=== PATIENT | male | born 1970 | race Caucasian/White ===

== ENCOUNTER 2018-10-28 13:08 | Outpatient (CLI) | payer MEDICAID, SELFPAY ==
--- NOTE | 2018-10-28 15:56 | DI.RAD_ITS ---
SYMPTOM/DIAGNOSIS: RT KNEE PAIN, M25.561 RIGHT KNEE: Four views. No priors. Small osteophytes are seen at the posterior patella. The joint spaces are otherwise well maintained. The bones are intact and normally mineralized. The soft tissues are unremarkable. Small enthesophytes are seen at the anterior patella. IMPRESSION: Minimal degenerative changes of the right knee.
== END 2018-10-28 13:28 ==
PROVIDERS: PCP Physician Assistant Medical; Visit Provider Physician Assistant Medical
DX: M25.561 Pain in right knee (principal); M17.11 Unilateral primary osteoarthritis, right knee
CPT/HCPCS: 73562

== ENCOUNTER 2019-06-08 18:53 | Outpatient (REF) | payer MEDICAID, SELFPAY ==
[2019-06-08 23:02] LABS: ALT 125 U/L (16-63); AST 67 U/L (15-37); Albumin 3.6 g/dL (3.4-5.0); Alkaline Phosphatase 100 U/L (46-116); Anion Gap 6.6 mmol/L (3-11); BUN 16 mg/dL (7-18); Bilirubin, Total 0.4 mg/dL (0.2-1.0); CO2 28.4 mmol/L (21.0-32.0); CREATININE 1.04 mg/dL (0.70-1.30); Calcium 9.2 mg/dL (8.5-10.1); Calculated LDL 96 mg/dL; Chloride 99 mmol/L (98-107); Cholesterol 199 mg/dL (<200); Glucose 443 mg/dL (74-106); HDL Cholesterol 32 mg/dL (40-60); Potassium 5.2 mmol/L (3.5-5.1); Sodium 134 mmol/L (136-145); Total Protein 6.9 g/dL (6.4-8.2); Triglyceride 356 mg/dL (<150)
== END 2019-06-08 19:13 ==
LOC: NCHCN 18:53
PROVIDERS: PCP Physician Assistant Medical; Visit Provider Physician Assistant Medical
DX: E11.9 Type 2 diabetes mellitus without complications (principal)
CPT/HCPCS: 80053; 80061

== ENCOUNTER 2020-07-26 16:31 | Outpatient (REF) | payer MEDICAID, SELFPAY ==
[2020-07-26 19:03] LABS: Hemoglobin A1C 9.3 % (<5.7)
[2020-07-26 19:07] LABS: ALT 100 U/L (16-63); AST 29 U/L (15-37); Albumin 3.6 g/dL (3.4-5.0); Alkaline Phosphatase 111 U/L (46-116); BUN 23 mg/dL (7-18); Bilirubin, Total 0.4 mg/dL (0.2-1.0); CREATININE 1.1 mg/dL (0.70-1.30); Calcium 9.2 mg/dL (8.5-10.1); Chloride 100 mmol/L (98-107); Cholesterol 195 mg/dL (<200); Glucose 447 mg/dL (74-106); HDL Cholesterol 28 mg/dL (40-60); Potassium 4.8 mmol/L (3.5-5.1); Sodium 139 mmol/L (136-145); Total Protein 6.9 g/dL (6.4-8.2); Triglyceride 491 mg/dL (<150)
[2020-07-26 19:38] LABS: LDL CHOLESTEROL 124 mg/dL (<100)
== END 2020-07-26 16:32 | disposition home or self-care (01) ==
LOC: NCHCN 16:31
PROVIDERS: PCP Physician Assistant Medical; Visit Provider Physician Assistant Medical
DX: E11.9 Type 2 diabetes mellitus without complications (principal)
CPT/HCPCS: 80053; 80061; 83721; 83036

== ENCOUNTER 2021-10-04 18:30 | Outpatient (REF) | payer MEDICAID, SELFPAY ==
[2021-10-04 15:36] LABS: ALT 174 U/L (16-63); AST 79 U/L (15-37); Alkaline Phosphatase 96 U/L (46-116); Anion Gap 12.8 mmol/L (3-11); BUN 11 mg/dL (7-18); Bilirubin, Total 0.3 mg/dL (0.2-1.0); CO2 23.2 mmol/L (21.0-32.0); CREATININE 0.8 mg/dL (0.70-1.30); Calcium 8.8 mg/dL (8.5-10.1); Calculated LDL 122 mg/dL (<100); Chloride 106 mmol/L (98-107); Cholesterol 178 mg/dL (<200); Glucose 245 mg/dL (74-106); HDL Cholesterol 42 mg/dL (40-60); Potassium 4.5 mmol/L (3.5-5.1); Sodium 142 mmol/L (136-145); Total Protein 7.2 g/dL (6.4-8.2); Triglyceride 71 mg/dL (<150)
[2021-10-04 15:46] LABS: Hemoglobin A1C 8.1 % (<5.7)
== END 2021-10-04 18:31 | disposition home or self-care (01) ==
LOC: NCHCN 18:30
PROVIDERS: PCP Physician Assistant Medical; Visit Provider Physician Assistant Medical
DX: E11.9 Type 2 diabetes mellitus without complications (principal); I10 Essential (primary) hypertension
CPT/HCPCS: 80053; 80061; 83036

== ENCOUNTER 2021-10-16 18:07 | Outpatient (REF) | payer MEDICAID, SELFPAY ==
[2021-10-16 20:40] LABS: HCT 48.1 % (40.0-50.0); HGB 15.7 g/dL (13.5-17.5); MCH 27.2 pg (27.0-33.0); MCHC 32.6 % (32.0-36.0); MCV 83 fL (80-95); MPV 11.8 fL (8.0-11.0); Platelet Count 260 10^3/uL (130-400); RBC 5.78 10^6/uL (4.36-5.78); RDW 14.2 % (11.8-14.1); RDW-SD 42.5 fL; WBC 14.14 10^3/uL (4.4-10.8)
[2021-10-18 10:31] LABS: Hepatitis A Antibody IgM Negative (Negative); Hepatitis B Core Antibody Negative (Negative); Hepatitis B surface Ag Negative (Negative); Hepatitis C Ab w Rflx HCV PCR Negative (Negative)
== END 2021-10-16 18:08 | disposition home or self-care (01) ==
LOC: NCHCN 18:07
PROVIDERS: PCP Physician Assistant Medical; Visit Provider Physician Assistant Medical
DX: K76.0 Fatty (change of) liver, not elsewhere classified (principal)
CPT/HCPCS: 85027; 86704; 86709; 86803; 87340

== ENCOUNTER 2022-05-13 17:29 | Emergency (ER) | payer MEDICAID, SELFPAY ==
[2022-05-13] VITALS (68 sets, daily range): BP systolic 126–163; BP diastolic 75–99; PULSE 86–107; RESP 12–31; TEMP 36.6; O2SAT 95–98
--- NOTE | 2022-05-13 18:00 | DI.RAD_ITS ---
Exam(s) XR RIBS LT W PA LAT CHEST EXAM: XR RIBS LT W PA LAT CHEST CLINICAL HISTORY: fall, pain ant lat ribs. TECHNIQUE: 2D digital imaging was performed. COMPARISON: No exams were available for comparison FINDINGS: Total 6 views. Left ribs-4 views: No obvious left rib fractures. Metallic BB marker is over the region of the 11th rib. No obvious rib fracture evident at this level. Chest x-ray- 2 views: Heart size normal. Mediastinum is not widened. Lungs are clear. No pleural e ffusions. No pneumothorax. No lung contusion. IMPRESSION: No obvious left rib fractures. No pneumothorax. No acute pulmonary findings. DATA REPOSITORY: RADIATION DOSE DELIVERED:
--- NOTE | 2022-05-13 18:12 | ED.GENADUL_ITS ---
Discharge Plan Disposition Patient Disposition: Home Condition: Stable Discharge Details Clinical Impression: Contusion of rib on left side, Fall due to ice or snow, Abrasion Primary Care Provider: Krishna Barrios ED Provider: Kalen Funk Home Meds and New Rx's Prescriptions: Continued metformin 500 MG tablet 1,000 mg PO BID cyanocobalamin (vitamin B-12) [Vitamin B-12] 1,000 MCG tablet 1,000 mcg PO DAILY aspirin [Aspir-81] 81 MG tablet,delayed release (DR/EC) 81 mg PO DAILY lisinopril 10 MG tablet 40 mg PO DAILY cholecalciferol (vitamin D3) 1,000 UNITS tablet 1,000 units PO DAILY insulin glargine [Lantus Solostar U-100 Insulin] 100 UNIT/ML insulin pen 90 units Sub-Q BID Victoza 2-Jack 0.6 MG/0.1 ML pen injector 1.8 mg SQ DAILY glimepiride 2 mg tablet 1 tab PO BID insulin lispro [Humalog KwikPen Insulin] 100 unit/mL insulin pen 55 unit SUBCUT TID Label Comments: INJECT 55 UNITS SUBCUTANEOUSLY THREE TIMES A AY WITH MEALS Discharge Instructions Instructions: Diphtheria/Acellular Pertussis/Tetanus Booster Vaccine (By injection), How to Use an Incentive Spirometer (ED), Abrasion (ED), Fall Prevention (ED), Rib Contusion (ED) Additional Instructions: Use incentive spirometry as reviewed every 2 hours while awake for the next 1 week. Please take naproxen for pain?dose according to label. Please take acetaminophen (tylenol) - 650mg every 6 hours by mouth as needed for pain. Use lidocaine patches. These are [id number]. Dose according to label. Please contact your primary care physician to arrange follow-up. Return to the ER immediately for any worsening or new concerning symptoms. Referrals: Krishna Barrios PA [Primary Care Provider] - Medical Decision Making 1835 --51-year-old male here with left rib pain after fall this afternoon. Patient saturating well. He is unable to take a deep breath. Suspect rib fracture versus contusion. Considered pneumothorax. Plan to obtain chest x-ray with rib series. I will place lidocaine patch and treat with Tylenol. Patient also had fall earlier today with head injury. Patient mentating well. Neurologogically intact. No headache. -- X-ray of the chest and ribs interpreted by radiology: No acute displaced left rib fractures. No acute cardiopulmonary abnormality. Suspect rib contusion. Plan for incentive spirometry, Tylenol and NSAID. Fall precautions were provided. Usual customary discharge instructions were reviewed. HPI General Mode of arrival: ambulatory . Date/Time Provider Initiated Documentation: 05/13/22 18:01 . Limitations to Documentation: no limitations . Information obtained by: patient . HPI Narrative: 51-year-old male presents with chief complaint of left rib pain. Patient notes he slipped and fell on ice this morning and hit his head. He thinks he had a brief loss of consciousness but this trauma. He continued to work all day and has had no headache. No confusion, no numbness or tingling. He fell again this afternoon on ice and landed on his left chest. This occurred around 330p. He has had pain in his ribs since the fall. Pain is worse with any deep breath. No associated abdominal pain. No neck pain or back pain. No abdominal pain. Related Data Home Medications Medication Instructions Recorded Confirmed aspirin 81 mg tablet,delayed 81 mg PO DAILY 12/17/16 05/13/22 release (Aspir-) cholecalciferol (vitamin D3) 25 1,000 units PO DAILY 12/17/16 05/13/22 mcg (1,000 unit) tablet cyanocobalamin (vitamin B-12) 1,000 mcg PO DAILY 12/17/16 05/13/22 1,000 mcg tablet (Vitamin B-12) insulin glargine 100 unit/mL (3 90 units subcut BID 12/17/16 12/17/16 mL) subcutaneous pen (Lantus Solostar U-100 Insulin) liraglutide 0.6 mg/0.1 mL (18 mg/3 1.8 mg SQ DAILY 12/17/16 05/13/22 mL) subcutaneous pen injector (Victoza 2-Jack) lisinopril 10 mg tablet 40 mg PO DAILY 12/17/16 05/13/22 metformin 500 mg tablet 1,000 mg PO BID 12/17/16 05/13/22 glimepiride 2 mg tablet 1 tab PO BID 05/13/22 05/13/22 insulin lispro 100 unit/mL 55 unit subcut TID 12/20/22 12/20/22 subcutaneous pen (Humalog KwikPen (U-100) Insulin) Allergies Allergy/AdvReac Type Severity Reaction Status Date / Time No Known Allergies Allergy Unverified 05/13/22 17:51 General Stated Complaint: Trauma JUHI: 3 Review of Systems All systems reviewed & are unremarkable except as noted in HPI and below Cardiovascular Cardiovascular: Denies dyspnea Respiratory Respiratory: Denies cough and Denies dyspnea Musculoskeletal Musculoskeletal: Reports as per HPI Comments: chest pain PFSH All Active Problems (Updated 05/13/22 @ 20:34 by Kalen Funk MD) Contusion of rib on left side (Acute) Fall due to ice or snow (Acute) Abrasion (Acute) Social History Smoking/Tobacco Use Status: Never Smoking risk assessment performed?: Yes Drug use: Never Substance use type: does not use Do you feel safe at home: Yes Do you feel safe in your relationship?: Yes Exam Const General: cooperative and no acute distress Nutritional Appearance: obese Orientation: alert [facility] Head: no palpable skull fracture, no raccoon eyes, No periorbital ecchymosis and other (abrasion superior to left eyebrow) Eyes Conjunctivae: normal conjunctivae Sclera: normal sclerae Pupils: PERRL EOM: EOM intact bilaterally Neck Neck: trachea midline Chest Chest: no crepitus and localized rib tenderness with anteroposterior compression (left lower) Resp Auscultation: no rales, no rhonchi and no wheezes Other: diminished BS left, unable to take deep breath 2/2 pain Cardio Rate: regular rate and not tachycardic Rhythm: regular rhythm GI Palpation: soft, not firm, no guarding, no masses, not rigid and nontender Skin General skin exam: no rashes or lesions noted Neuro General: patient alert, patient awake, patient oriented x3 and tone normal Extrem Left upper extremity: hand (abrasion left 5th mcp, nonttp) Details: normal ROM of fingers; no tenderness Psych Appearance: grossly normal Mental Status: mental status grossly normal Course Vital Signs Vital signs: Vital Signs Temperature 36.6 C 05/13/22 17:44 Pulse 94 H 05/13/22 17:44 Respiratory Rate 14 05/13/22 17:44 Blood Pressure 152/89 H 05/13/22 17:44 Pulse Oximetry 97 05/13/22 17:44 Temperature 36.6 C 05/13/22 17:44 Temperature Source Skin 05/13/22 17:44 Pulse 94 H 05/13/22 17:44 Respiratory Rate 14 05/13/22 17:44 Respiratory Effort 05/13/22 17:50 Blood Pressure 152/89 H 05/13/22 17:44 Blood Pressure Position Sitting 05/13/22 17:44 Pulse Oximetry 97 05/13/22 17:44 Oxygen Delivery Method Room Air 05/13/22 17:44 Oxygen Flow Rate 0 05/13/22 17:44 Pain Level 7 05/13/22 17:44
[2022-05-13] MEDS: Acetaminophen 325 MG TAB 650 MG PO (18:26)
[2022-05-13] MEDS: Lidocaine 5% Patch 1 PATCH TP (18:27)
--- NOTE | 2022-05-13 19:56 | DI.VRAD_ITS ---
PROCEDURE INFORMATION: Exam: XR Left Ribs Exam date and time: 05/13/2022 6:55 PM Age: 51 years old Clinical indication: Injury or trauma; Blunt trauma (contusions or hematomas); Rib area, left side; Injury date: 05/13/22; Injury details: Fall, L anterior lat rib pain; Patient HX: Bb marker at site of pain TECHNIQUE: Imaging protocol: Radiologic exam of the Left ribs. Views: 2 views. COMPARISON: No relevant prior studies available. FINDINGS: Tubes, catheters and devices: No abnormality identified to correspond to metallic BB marker. Bones/joints: Normal. Soft tissues: Normal. IMPRESSION: No acute displaced left rib fractures. PROCEDURE INFORMATION: Exam: XR Chest Exam date and time: 05/13/2022 6:55 PM Age: 51 years old Clinical indication: Injury or trauma; Blunt trauma (contusions or hematomas); Rib area, left side; Injury date: 05/13/22; Injury details: Fall, L anterior lat rib pain; Patient HX: Bb marker at site of pain TECHNIQUE: Imaging protocol: Radiologic exam of the chest. Views: 2 views. COMPARISON: No relevant prior studies available. FINDINGS: Lungs: Minimal bibasilar atelectasis. Pleural spaces: Unremarkable. No pleural effusion. No pneumothorax. Heart/Mediastinum: Normal. Bones/joints: Mild multilevel thoracic spine degenerative disc space narrowing and osteophyte formation. IMPRESSION: No acute cardiopulmonary abnormality. Dictated and Authenticated by: Darren Ribeiro MD. Ordering:SUE Higuera MD
== END 2022-05-13 20:57 | disposition home or self-care (01) ==
PROVIDERS: Emergency Provider Student in an Organized Health Care Education/Training Program; PCP Physician Assistant Medical
DX: S20.212A Contusion of left front wall of thorax, initial encounter (principal); S00.212A Abrasion of left eyelid and periocular area, initial encounter; Z23 Encounter for immunization; Y99.0 Civilian activity done for income or pay; W00.0XXA Fall on same level due to ice and snow, initial encounter; W22.8XXA Striking against or struck by other objects, initial encounter
CPT/HCPCS: 90471; 99283; 71046; 71100; 99284

== ENCOUNTER 2022-08-06 17:17 | Outpatient (REF) | payer MEDICAID, SELFPAY ==
[2022-08-06 19:35] LABS: HCT 46.5 % (40.0-50.0); HGB 14.8 g/dL (13.5-17.5); MCH 26.2 pg (27.0-33.0); MCHC 31.8 % (32.0-36.0); MCV 82 fL (80-95); MPV 10.7 fL (8.0-11.0); Platelet Count 225 10^3/uL (130-400); RBC 5.65 10^6/uL (4.36-5.78); RDW-SD 41.8 fL; WBC 9.79 10^3/uL (4.4-10.8)
[2022-08-06 19:47] LABS: Hemoglobin A1C 7.6 % (<5.7)
[2022-08-06 19:48] LABS: ALT 159 U/L (16-63); AST 63 U/L (15-37); Albumin 4.2 g/dL (3.4-5.0); Alkaline Phosphatase 96 U/L (46-116); Anion Gap 8.3 mmol/L (3-11); BUN 15 mg/dL (7-18); Bilirubin, Total 0.4 mg/dL (0.2-1.0); CO2 26.7 mmol/L (21.0-32.0); CREATININE 1.2 mg/dL (0.70-1.30); Calcium 9.7 mg/dL (8.5-10.1); Calculated LDL 123 mg/dL (<100); Chloride 102 mmol/L (98-107); Cholesterol 194 mg/dL (<200); Estimated GFR 72.31 (mL/min/1.73m2); Glucose 261 mg/dL (74-106); HDL Cholesterol 39 mg/dL (40-60); Potassium 4.9 mmol/L (3.5-5.1); Sodium 137 mmol/L (136-145); Total Protein 7.7 g/dL (6.4-8.2); Triglyceride 161 mg/dL (<150)
== END 2022-08-06 17:18 | disposition home or self-care (01) ==
LOC: NCHCN 17:17
PROVIDERS: PCP Physician Assistant Medical; Visit Provider Physician Assistant Medical
DX: E11.9 Type 2 diabetes mellitus without complications (principal); K76.0 Fatty (change of) liver, not elsewhere classified
CPT/HCPCS: 80053; 80061; 85027; 83036

== ENCOUNTER 2022-08-12 01:32 | Outpatient (CLI) | payer MEDICAID, SELFPAY ==
--- NOTE | 2022-08-12 14:09 | DI.RAD_ITS ---
Exam(s) XR KNEE LT 3V AP,LAT,DAVE EXAM: XR KNEE LT 3V AP,LAT,DAVE CLINICAL HISTORY: LT KNEE PAIN, M25.562. TECHNIQUE: 2D digital imaging was performed of the left knee. Four images were obtained. AP, later al and PA tunnel views were obtained. COMPARISON: None. FINDINGS: BONES: No acute fracture is present. No bony destructive lesion is seen. JOINTS: The knee is normally aligned. No joint effusion is seen. Small spurs are seen at the posterio r patella. SOFT TISSUE: Normal. IMPRESSION: Mild degenerative changes seen in the knee. DATA REPOSITORY: RADIATION DOSE DELIVERED:
== END 2022-08-12 01:52 ==
LOC: DI 01:32
PROVIDERS: PCP Physician Assistant Medical; Visit Provider Physician Assistant Medical
DX: M25.562 Pain in left knee (principal); M76.892 Other specified enthesopathies of left lower limb, excluding foot
CPT/HCPCS: 73562

== ENCOUNTER 2023-01-02 13:49 | Emergency (ER) | payer MEDICAID, SELFPAY ==
[2023-01-02 13:56] VITALS: BP 163/100; PULSE 105; RESP 20; TEMP 37.1; O2SAT 98
--- NOTE | 2023-01-02 15:06 | ED.GENADUL_ITS ---
Discharge Plan Discharge Details Chief Complaint: Cellulitis Primary Care Provider: Krisnha Barrios ED Provider: Houston Burton Home Meds and New Rx's Prescriptions: No Action naproxen 500 mg tablet 500 mg PO BID PRN glimepiride 4 mg tablet 4 mg PO BID rosuvastatin 5 mg tablet 5 mg PO DAILY metformin 500 MG tablet 1,000 mg PO BID cyanocobalamin (vitamin B-12) [Vitamin B-12] 1,000 MCG tablet 1,000 mcg PO DAILY aspirin [Aspir-81] 81 MG tablet,delayed release (DR/EC) 81 mg PO DAILY lisinopril 10 MG tablet 40 mg PO DAILY cholecalciferol (vitamin D3) 1,000 UNITS tablet 1,000 units PO DAILY insulin glargine [Lantus Solostar U-100 Insulin] 100 UNIT/ML insulin pen 90 units Sub-Q BID Victoza 2-Jack 0.6 MG/0.1 ML pen injector 1.8 mg SQ DAILY insulin lispro [Humalog KwikPen Insulin] 100 unit/mL insulin pen 55 unit SUBCUT TID Patient Comments: INJECT 55 UNITS SUBCUTANEOUSLY THREE TIMES A AY WITH MEALS Medical Decision Making Patient with abscess requiring I&D in the emergency department. Vital signs within normal limits. It is unclear why he has this abscess at this time. HPI General Date/Time Provider Initiated Documentation: 01/02/23 14:58 . HPI Narrative: 52-year-old gentleman presents to the emergency room with he believes is a boil underneath the left armpit. Its been there for a few days but for the past day or so quickly and turned blackish in color. Very tender to the touch. He says he has had some sweats but no quantified fevers. He reached out his primary care doctor who could not see him today and sent him to the emergency department for further evaluation. Patient states that his fingerstick is 260 but he ate immediately prior to come to the emergency room did not take his insulin. Related Data Home Medications Medication Instructions Recorded Confirmed aspirin 81 mg tablet,delayed 81 mg PO DAILY 12/17/16 01/02/23 release (Aspir-) cholecalciferol (vitamin D3) 25 1,000 units PO DAILY 12/17/16 01/02/23 mcg (1,000 unit) tablet cyanocobalamin (vitamin B-12) 1,000 mcg PO DAILY 12/17/16 05/13/22 1,000 mcg tablet (Vitamin B-12) insulin glargine 100 unit/mL (3 90 units subcut BID 12/17/16 01/02/23 mL) subcutaneous pen (Lantus Solostar U-100 Insulin) liraglutide 0.6 mg/0.1 mL (18 mg/3 1.8 mg SQ DAILY 12/17/16 01/02/23 mL) subcutaneous pen injector (Victoza 2-Jack) lisinopril 10 mg tablet 40 mg PO DAILY 12/17/16 01/02/23 metformin 500 mg tablet 1,000 mg PO BID 12/17/16 01/02/23 insulin lispro 100 unit/mL 55 unit subcut TID 05/13/22 01/02/23 subcutaneous pen (Humalog KwikPen (U-100) Insulin) glimepiride 4 mg tablet 4 mg PO BID 08/19/22 01/02/23 naproxen 500 mg tablet 500 mg PO BID PRN 08/19/22 01/02/23 rosuvastatin 5 mg tablet 5 mg PO DAILY 08/19/22 01/02/23 Allergies Allergy/AdvReac Type Severity Reaction Status Date / Time No Known Allergies Allergy Unverified 01/02/23 13:59 General Stated Complaint: Cellulitis JUHI: 4 Review of Systems Narrative: 10 point review of system negative unless otherwise specified in the HPI PFSH All Active Problems (Updated 11/03/22 @ 14:41 by CHEO Bautista) Arthritis of knee, left (Acute) Social History Smoking/Tobacco Use Status: Never Smoking risk assessment performed?: Yes Drug use: Never Substance use type: does not use Do you feel safe at home: Yes Do you feel safe in your relationship?: Yes Exam Narrative Exam Narrative: General: A,A Ox3, Calm, no apparent distress, well developed, pleasant and cooperative Head Size/Shape: normocephalic, atraumatic Eyes Pupils: PERRLA Extraocular Mobility: intact and symmetrical Conjunctiva: non-injected, anicteric, no discharge Oral Cavity: moist Neck: no masses, no crepitus Lymph Nodes: no cervical lymphadenopathy Respiratory Respiratory Effort: no dyspnea Cardiovascular Normal cap refill Left-sided chest wall. Patient does have an area of cellulitis approximately 18 cm in diameter. There is a central part to the cellulitis that is elevated and very tender, fluctuant. Musculoskeletal System Joints, Bones, and Muscles: no deformities Extremities: warm and well-perfused, no cyanosis, capillary refill <2 seconds Skin Skin Inspection: no rash, no lesions, no bruising Neurological Motor: normal tone, normal strength, moving all extremities equally Psychiatric: good insight, good judgement, normal mood and affect Course Vital Signs Vital signs: Vital Signs Temperature 37.1 C 01/02/23 13:56 Pulse 105 H 01/02/23 13:56 Respiratory Rate 20 01/02/23 13:56 Blood Pressure 163/100 H 01/02/23 13:56 Pulse Oximetry 98 01/02/23 13:56 Temperature 37.1 C 01/02/23 13:56 Temperature Source Skin 01/02/23 13:56 Pulse 105 H 01/02/23 13:56 Respiratory Rate 20 01/02/23 13:56 Respiratory Effort Normal, Non-Labored 01/02/23 14:48 Blood Pressure 163/100 H 01/02/23 13:56 Blood Pressure Position Sitting 01/02/23 13:56 Pulse Oximetry 98 01/02/23 13:56 Oxygen Delivery Method Room Air 01/02/23 13:56 Oxygen Flow Rate 0 01/02/23 13:56 Pain Level 5 01/02/23 13:56 Procedures Other Description: I&D of abscess. Area was cleaned with chlorhexidine. The wound was anesthetized with 4 mils of 1% lidocaine with epi. The abscess was incised with an 11 blade. Profuse amount of pus was drained. Loculations were broken. Wound was irrigated. Dressing was applied. Patient tolerated procedure well.
== END 2023-01-02 15:54 | disposition home or self-care (01) ==
PROVIDERS: Emergency Provider Emergency Medicine; PCP Physician Assistant Medical
DX: L02.412 Cutaneous abscess of left axilla (principal); E11.9 Type 2 diabetes mellitus without complications; Z79.82 Long term (current) use of aspirin; Z79.4 Long term (current) use of insulin
CPT/HCPCS: 10060; 99282

== ENCOUNTER 2023-09-02 15:19 | Emergency (ER) | payer MEDICAID, SELFPAY ==
[2023-09-02 15:10] VITALS: BP 170/84; PULSE 86; RESP 16; TEMP 36.1; O2SAT 98
--- NOTE | 2023-09-02 15:50 | W.ED.GENAD ---
Discharge Plan Discharge Details Chief Complaint: GenMedical Clinical Impression: Mastoid disorder, Facial palsy, Chronic suppurative otitis media, Cholesteatoma Primary Care Provider: Krishna Barrios ED Provider: Tung Emery Home Meds and New Rx's Prescriptions: No Action naproxen 500 mg tablet 500 mg PO BID PRN glimepiride 4 mg tablet 4 mg PO BID rosuvastatin 5 mg tablet 5 mg PO DAILY metformin 500 MG tablet 1,000 mg PO BID aspirin [Aspir-81] 81 MG tablet,delayed release (DR/EC) 81 mg PO .every other day lisinopril 10 MG tablet 40 mg PO DAILY cholecalciferol (vitamin D3) 1,000 UNITS tablet 1,000 units PO DAILY insulin glargine [Lantus Solostar U-100 Insulin] 100 UNIT/ML insulin pen 90 units Sub-Q BID Victoza 2-Jack 0.6 MG/0.1 ML pen injector 1.8 mg SQ DAILY insulin lispro [Humalog KwikPen Insulin] 100 unit/mL insulin pen 55 unit SUBCUT TID Patient Comments: INJECT 55 UNITS SUBCUTANEOUSLY THREE TIMES A AY WITH MEALS HPI General Date/Time Provider Initiated Documentation: 09/02/23 15:20. HPI Narrative: 53 year-old male presents to ED today by EMS with a chief complaint of R ear pain with drainage of serous fluid with onset one week ago that stopped Thursday night, states he cannot close his R eye- noted this at around 1400 today, with some mild isolated facial numbness, and has URI symptoms with productive cough that is resolving. States his hearing feels mildly muffled with some achiness behind his ear. Quality described as R ear aching, mild facial numbness, and inability to fully close his R eye unless he really puts effort into this, no radiation to skin lesions of face or ear, visual changes, hemiparesis or weakness, shortness of breath, slurred speech, confusion. Severity is described as 4-5/10. Palliating factors include nothing specific attempted. Provoking factors include nothing specific- possible viral URI or otitis as onset. Events leading up to the incident/Associated Symptoms: Patient was seen at PCP office in [place], who called EMS for stroke alert, stroke scale negative by EMS. Patient not anticoagulated. Related Data Home Medications Medication Instructions Recorded Confirmed aspirin 81 mg tablet,delayed 81 mg PO .every other day 12/17/16 09/02/23 release (Aspir-) cholecalciferol (vitamin D3) 25 1,000 units PO DAILY 12/17/16 09/02/23 mcg (1,000 unit) tablet insulin glargine 100 unit/mL (3 90 units subcut BID 12/17/16 09/02/23 mL) subcutaneous pen (Lantus Solostar U-100 Insulin) liraglutide 0.6 mg/0.1 mL (18 mg/3 1.8 mg SQ DAILY 12/17/16 09/02/23 mL) subcutaneous pen injector (Victoza 2-Jack) lisinopril 10 mg tablet 40 mg PO DAILY 12/17/16 09/02/23 metformin 500 mg tablet 1,000 mg PO BID 12/17/16 09/02/23 insulin lispro 100 unit/mL 55 unit subcut TID 05/13/22 09/02/23 subcutaneous pen (Humalog KwikPen (U-100) Insulin) glimepiride 4 mg tablet 4 mg PO BID 08/19/22 09/02/23 naproxen 500 mg tablet 500 mg PO BID PRN 08/19/22 09/02/23 rosuvastatin 5 mg tablet 5 mg PO DAILY 08/19/22 09/02/23 Allergies Allergy/AdvReac Type Severity Reaction Status Date / Time No Known Allergies Allergy Unverified 09/02/23 16:04 General Stated Complaint: GenMedical JUHI: 3 Review of Systems All systems reviewed & are unremarkable except as noted in HPI and below Exam Narrative Exam Narrative: GENERAL APPEARANCE: Obese, non-toxic, awake and alert, atraumatic, no acute distress. SKIN: Warm, pink, dry, intact, without rashes/lesions/ulcerations. HEAD: Normocephalic, atraumatic, normal hair distribution for gender/age. EYES: Pupils PERRLA, EOMs intact without nystagmus, normal conjunctiva, no exudates on lids/lashes. ENT: Nares patent, no circumoral cyanosis, no facial swelling, L TM WNL, R TM WNL no effusions visualized, possible cottage cheese discharge at 3 o'clock position, mild mastoid tenderness without fluctuant swelling/bogginess, no vesicular lesions of external or ear canal NECK: Supple, trachea midline, painless cervical ROM. LUNGS/CHEST: Lungs CTA bilaterally- no rhonchi/rales/wheezes diffusely, non-labored respirations, normal A/P diameter, symmetrical expansion, no chest wall deformity HEART (CV/PV): Regular rate and rhythm without murmur, no peripheral edema, no JVD. ABDOMEN: Soft, non-distended, no guarding. MSK: Normal ROM, no swelling/deformity to bilateral UEs or LEs, moving all extremities without weakness, no cyanosis, spine midline without tenderness, normal curvature. NEURO: Mental Status AAOx4 - alert to person, place, time, events No visible droop of lips, is able to close R eye with effort, does not open against resistance, eyebrow movement intact, endorses mild tingling/numbness in R facial distribution Motor: No focal weakness - strength 5/5 in bilateral UEs and LEs, proximal and distal, symmetric. Sensory: sensation intact to light touch globally. Gait normal: patient ambulated without ataxia into ED room. PSYCH: euthymic, cooperative, pleasant, appropriate speech Course Vital Signs Vital signs: Vital Signs Temperature 36.1 C L 09/02/23 15:10 Pulse 86 09/02/23 15:10 Respiratory Rate 16 09/02/23 15:10 Blood Pressure 170/84 H 09/02/23 15:10 Pulse Oximetry 98 09/02/23 15:10 Temperature 36.1 C L 09/02/23 15:10 Temperature Source Temporal Artery Scan 09/02/23 15:10 Pulse 86 09/02/23 15:10 Respiratory Rate 16 09/02/23 15:10 Blood Pressure 170/84 H 09/02/23 15:10 Blood Pressure Position Sitting 09/02/23 15:10 Pulse Oximetry 98 09/02/23 15:10 Oxygen Delivery Method Room Air 09/02/23 15:10 Oxygen Flow Rate 0 09/02/23 15:10 Pain Level 2 09/02/23 15:10 Medical Decision Making This dictation utilizes [id number] dictation software and may contain unedited grammatical errors. 53 y/o M presents to ED today with a chief complaint of right ear pain for the past week, experience some drainage earlier in the week and presented to PCP office for evaluation and was referred here for stroke alert due to facial palsy. He reports that he is hearing is muffled like he is wearing a helmet or underwater, he does endorse some pain behind the ear with some swelling, he denies any dysphagia or neck pain or neck stiffness, denies any visual changes, numbness/tingling, slurred speech or weakness. Patient has not had chronic ear issues in the past. Patients' medical history: Insulin-dependent diabetes, pleurodynia, hypertension, restless leg, obesity. Family and social history: no ETOH use, no illicit drug use, no recent travel. Pertinent exam findings / vital signs include ENT: Nares patent, no circumoral cyanosis, no facial swelling, L TM WNL, R TM WNL no effusions visualized, possible cottage cheese discharge at 3 o'clock position, mild mastoid tenderness without fluctuant swelling/bogginess, no vesicular lesions of external or ear canal. Differential / pathologies of concern include Mastoiditis, Cholesteatoma R Ear, AOM, Suppurative Otitis Media, Varela's Palsey, Bentley-Stewart Syndrome less likely, Unlikely CVA/TIA, Nino's Otitis Externa. Diagnostic studies of: -CBC, CMP, CRP/ESR, Tick Panel, Blood Cx's, CT Temporal Bones w Contrast, CT Head wo Contrast, CXR, Covid/Flu/RSV PCR. -CBC shows no leukocytosis, no anemia -Inflammatory markers are only mildly elevated with a CRP of 0.77, ESR 29 -CRP shows mild elevation of AST and ALT, in the setting of chronic fatty liver disease -Tick panel is pending -COVID/flu/RSV PCR negative -CT Head wo shows mastoid effusion, CT Temporal w Contrast confirms- no periosteal involvement no coalescense -CXR WNL -Blood Cx's pending Interventions of: -ENT Consult w/ Dr. Billy -recommends IV antibiotics and observation, consulted with hospitalist team here who would not be comfortable admitting the patient without ENT backup. Dr. Billy would not be able to handle any possible surgical complications if the patient progressed to toxic labyrinthitis, the primary goal of IV antibiotics would be to prevent mastoiditis essentially. [facility] is unavailable for transfer, [facility] was consulted Dr. Green-was initially auto excepted by [facility] transfer center ED to ED but the ENT doctor called back and said this needs an family member caretaker and had to rescind acceptance. Consulted with ENT on-call at [facility] Dr. Reinoso -also not an family member caretaker, Is unsure whether this truly needs IV antibiotics would not want to contradict earlier ENT consult. Cannot accept for transfer due to capacity, ED hold with reconsult with subspecialist family member caretaker at [facility] tomorrow morning. -IV vancomycin, cefepime, Flagyl, Decadron ED Course/Assessment/Plan: 53-year-old male presents with right ear swelling and cottage cheeselike appearance at the 3 o'clock position in the right otic canal with a displacement of the TM likely due to localized swelling as well as mastoid tenderness and bogginess without erythema or warmth to the touch. I do suspect that he has a complicated possible ear infection like CSOM with facial palsy, cholesteatoma, mastoid effusion-warrants IV antibiotics with broad coverage due to his chronic diabetes. I was unable to find an accepting hospital with appropriate otology follow-up, the [facility] otology providers will likely be consulted in the morning by Dr. Chavez with possible ability to see the patient in clinic tomorrow afternoon. The patient's facial palsy did worsen throughout the visit so I did recommend against him returning home on p.o. antibiotics. There is a potential for him to progress to toxic labyrinthitis though likely most of these cases would resolve with IV antibiotics without complication or other follow-up. Patient signed out to Dr. Tung Chavez at shift change. Findings not consistent with CVA/TIA, complete facial paralysis, meningitis or encephalopathy, this is likely a problem of clinical mastoiditis though there is no infectious effusion seen on CTs but he does have complications associated commonly with a mastoid infection that needs definitive evaluation. Disposition of Chronic Suppurative Otitis Media, Facial Palsy, Cholesteatoma, Mastoid Disorder. Patient verbalized understanding of the plan and return to ED criteria and engaged in shared decision making. Medical Records Medical records reviewed: Yes I reviewed the patient's medical records. Imaging Data Radiologic Study: Attestation: I personally reviewed and interpreted this imaging study as follows: Imaging: X-Ray Radiologist's impression: EXAM: XR CHEST 2V PA LATERAL CLINICAL HISTORY: cough TECHNIQUE: 2D digital imaging was performed. Two views. COMPARISON: No exams were available for comparison FINDINGS: Exam is limited by patient body habitus. HEART: Normal size. Aorta: Not dilated. PULMONARY VASCULATURE: Normal. LUNGS: Clear. PLEURAL SPACE: No pleural effusion or pneumothorax. BONE:Unremarkable for age. Soft tissues: Unremarkable. IMPRESSION: No acute abnormality. Radiologic Study #2: Attestation: I personally reviewed and interpreted this imaging study as follows: Imaging: CT Scan Radiologist's impression: Exam: CT Head Without Contrast Exam date and time: 09/02/2023 6:23 PM Age: 53 years old Clinical indication: Other: Facial palsy; Other: R ear pain; Additional info: R ear pain, facial palsy TECHNIQUE: Imaging protocol: Computed tomography of the head without contrast. COMPARISON: No relevant prior studies available. FINDINGS: Brain: Mild volume loss No hemorrhage. Unremarkable white matter. No mass effect. Cerebral ventricles: No ventriculomegaly. Paranasal sinuses: Visualized sinuses are unremarkable. No fluid levels. Mastoid air cells: Moderate right mastoid effusion. Bones/joints: Unremarkable. No acute fracture. Soft tissues: Unremarkable. IMPRESSION: No acute intracranial abnormality. Moderate right mastoid effusion Dictated and Authenticated by: Delroy Recinos MD. Ordering:PATRIZIA Ruby MD Radiologic Study #3: Attestation: I personally reviewed and interpreted this imaging study as follows: Imaging: CT Scan Radiologist's impression: Exam: CT Temporal Bones With Contrast. Exam date and time: 09/02/2023 6:28 PM Age: 53 years old Clinical indication: Other: R ear pain, drainage, mastoid ttp TECHNIQUE: Imaging protocol: Computed tomography of the temporal bones with contrast. Contrast material: OMNI 350; Contrast volume: 100 ml; Contrast route: INTRAVENOUS (IV); COMPARISON: CT HEAD WO 09/02/2023 6:23 PM FINDINGS: Right inner ear: Normal. Right ossicles and middle ear: Normal. The middle ear ossicles are intact. Right external auditory canal: Normal. Right facial nerve canal: Normal. Right jugular foramen: No jugular dehiscence. Right carotid canal: No aberrant carotid canal. Right mastoid air cells: Moderate to large right mastoid effusion. Left inner ear: Normal. Left ossicles and middle ear: Normal. The middle ear ossicles are intact. Left external auditory canal: Normal. Left facial nerve canal: Normal. Left jugular foramen: No jugular dehiscence. Left carotid canal: No aberrant carotid canal. Left mastoid air cells: Normal. No mastoid effusions. Soft tissues: Unremarkable. IMPRESSION: Moderate right mastoid effusion/fluid without CT evidence for coalescence or subperiosteal abscess Dictated and Authenticated by: Delroy Recinos MD. Ordering:PATRIZIA Ruby MD Lab Data Lab results reviewed: Yes I reviewed the patient's lab results. Labs: 09/02/23 16:55 Blood Blood Culture - Pending 09/02/23 16:50 Blood Blood Culture - Pending Laboratory Tests Range/Units 09/02/23 09/02/23 16:22 17:00 WBC (4.4-10.8) 10^3/uL 7.66 RBC (4.36-5.78) 10^6/uL 5.39 Hgb (13.5-17.5) g/dL 14.2 Hct (40.0-50.0) % 45.0 MCV (80-95) fL 84 MCH (27.0-33.0) pg 26.3 L MCHC (32.0-36.0) % 31.6 L RDW (11.8-14.1) % 13.8 Plt Count (130-400) 10^3/uL 190 MPV (8.0-11.0) fL 10.3 Immature Gran % 0.7 Neutrophils % 57.6 Lymphocytes % 30.5 Monocytes % 9.1 Eosinophils % 1.3 Basophils % 0.8 Nucleated RBC % (0.0-0.3) % 0.0 Absolute Neutrophils (1.2-6.7) 10^3/uL 4.41 Absolute Lymphocytes (1.2-3.4) 10^3/uL 2.34 Absolute Monocytes (0.1-0.8) 10^3/uL 0.70 Absolute Eosinophils (0.0-0.7) 10^3/uL 0.10 Absolute Basophils (0.0-0.2) 10^3/uL 0.06 ESR (0-20) mm/hr 29 H Sodium (136-145) mmol/L 140 Potassium (3.5-5.1) mmol/L 4.0 Chloride (98-107) mmol/L 102 Carbon Dioxide (21.0-32.0) mmol/L 28.7 Anion Gap (3-11) mmol/L 9.3 BUN (7-18) mg/dL 15 Creatinine (0.70-1.30) mg/dL 0.8 Est GFR (CKD-EPI 2020) (mL/min/1.73m2) 105.17 Glucose (74-106) mg/dL 162 H Calcium (8.5-10.1) mg/dL 9.1 Total Bilirubin (0.2-1.0) mg/dL 0.4 AST (15-37) U/L 85 H ALT (16-63) U/L 124 H Alkaline Phosphatase (46-116) U/L 79 C-Reactive Protein (<or=0.5) mg/dL 0.77 H Total Protein (6.4-8.2) g/dL 7.9 Albumin (3.4-5.0) g/dL 3.6 COVID-19 Source Nasopharynx SARS-CoV-2 (PCR) (Negative) Negative Influenza Type A (PCR) (Negative) Negative Influenza Type B (PCR) (Negative) Negative RSV (PCR) (Negative) Negative Quality:SDOH Health Related Social Needs: No Data to Display PFSH All Active Problems (Updated 09/02/23 @ 23:22 by CHEO Mendiola) Cholesteatoma (Acute) Chronic suppurative otitis media (Acute) Facial palsy (Acute) Mastoid disorder (Acute) Arthritis of knee, left (Acute) Social History Smoking/Tobacco Use Status: Never Smoking risk assessment performed?: Yes Alcohol Intake: current Alcohol Intake frequency: holidays/special occasions only Alcohol type: beer Drug use: Never Substance use type: does not use Do you feel safe at home: Yes Do you feel safe in your relationship?: Yes
[2023-09-02 15:55] VITALS: RESP 18
--- NOTE | 2023-09-02 16:15 | DI.CT_ITS ---
Exam(s) CT TEMPORAL BONE W CT HEAD WO EXAM: CT HEAD WO CLINICAL HISTORY: R ear pain, facial palsy. TECHNIQUE: Imaging Protocol: Axial computed tomography images with coronal and sagittal reformatted images were created and reviewed. CONTRAST MATERIAL: Intravenous: Omnipaque 350 Contrast volume:98 mL COMPARISON: There are no priors for comparison. FINDINGS: Right Temporal Bone: The vestibular and cochlear aqueduct are normal. The facial nerve canal is well maintained. The semic ircular canals are unremarkable. There is no evidence of dehiscence. The internal auditory canal is w ithin normal limits. The scutum and tegmen are within normal limits. There is no evidence of otoscler osis. There is fluid seen in the inferior aspect of the middle ear canal consistent with otitis medi a. The ossicles appear grossly unremarkable. There is fluid seen in the right mastoid air cells. The carotid canal and jugular foramen are within normal limits. The temporomandibular joint is unremarkable. Left Temporal Bone: The vestibular and cochlear aqueduct are normal. The facial nerve canal is well maintained. The semic ircular canals are unremarkable. There is no evidence of dehiscence. The internal auditory canal is within normal limits. The scutum and tegmen are within normal limits. There is no evidence of otoscle rosis. The middle ears unremarkable. The external auditory canal and mastoid air cells are normal. The carotid canal and jugular foramen a re within normal limits. The temporomandibular joint is unremarkable. Ventricles and Extra axial spaces: Normal in size and morphology for the patient's age. Hemorrhage: None. Cerebral parenchyma: No evidence of an acute territorial infarct. No mass effect. Midline shift: None. Brainstem/Cerebellum: Normal. Calvarium: Normal. Visualized Paranasal sinuses/Mastoids: Please see above. The visualized paranasal sinuses are clear as are the left mastoid air cells. Soft Tissues: Unremarkable. IMPRESSION: 1. No acute intracranial process. 2. Right mastoiditis and right otitis media. RADIATION DOSE DELIVERED: Total DLP DATA REPOSITORY: All CT scans at this facility are submitted to the National Radiology Data Registry (NRDR) Dose Index Registry (DIR) with the [employer] (ACR). RADIATION OPTIMIZATION: All CT scans at this facility use at least one of these dose optimization te chniques: automated exposure control; mA and/or kV adjustment per patient size (includes targeted exa ms where dose is matched to clinical indication); or iterative reconstruction.
--- NOTE | 2023-09-02 16:15 | DI.RAD_ITS ---
Exam(s) XR CHEST 2V PA LATERAL EXAM: XR CHEST 2V PA LATERAL CLINICAL HISTORY: cough TECHNIQUE: 2D digital imaging was performed. Two views. COMPARISON: No exams were available for comparison FINDINGS: Exam is limited by patient body habitus. HEART: Normal size. Aorta: Not dilated. PULMONARY VASCULATURE: Normal. LUNGS: Clear. PLEURAL SPACE: No pleural effusion or pneumothorax. BONE:Unremarkable for age. Soft tissues: Unremarkable. IMPRESSION: No acute abnormality. DATA REPOSITORY: RADIATION DOSE DELIVERED:
[2023-09-02 16:16] VITALS: BP 145/95; PULSE 89; RESP 20; O2SAT 98
[2023-09-02 16:32] LABS: Abs Immature Grans 0.05 10^3/uL (0.0-0.06); Absolute Basophil Count 0.06 10^3/uL (0.0-0.2); Absolute Lymphocyte Count 2.34 10^3/uL (1.2-3.4); Absolute Neutrophil Count 4.41 10^3/uL (1.2-6.7); Basophils % 0.8; Eosinophils % 1.3; HGB 14.2 g/dL (13.5-17.5); Immature Grans % 0.7; Lymphocytes % 30.5; MCH 26.3 pg (27.0-33.0); MCHC 31.6 % (32.0-36.0); MCV 84 fL (80-95); MPV 10.3 fL (8.0-11.0); Monocytes % 9.1; Neutrophils % 57.6; Platelet Count 190 10^3/uL (130-400); RBC 5.39 10^6/uL (4.36-5.78); RDW 13.8 % (11.8-14.1); RDW-SD 41.9 fL; WBC 7.66 10^3/uL (4.4-10.8)
[2023-09-02 16:34] LABS: ESR 29 mm/hr (0-20)
[2023-09-02 16:47] LABS: ALT 124 U/L (16-63); AST 85 U/L (15-37); Albumin 3.6 g/dL (3.4-5.0); Alkaline Phosphatase 79 U/L (46-116); Anion Gap 9.3 mmol/L (3-11); BUN 15 mg/dL (7-18); Bilirubin, Total 0.4 mg/dL (0.2-1.0); C-Reactive Protein 0.77 mg/dL (<or=0.5); CO2 28.7 mmol/L (21.0-32.0); CREATININE 0.8 mg/dL (0.70-1.30); Calcium 9.1 mg/dL (8.5-10.1); Chloride 102 mmol/L (98-107); Estimated GFR 105.17 (mL/min/1.73m2); Glucose 162 mg/dL (74-106); Sodium 140 mmol/L (136-145); Total Protein 7.9 g/dL (6.4-8.2)
[2023-09-02 17:48] LABS: COVID-19 PCR Negative (Negative); Influenza A PCR Negative (Negative); Influenza B PCR Negative (Negative); RSV PCR Negative (Negative)
[2023-09-02 17:50] LABS: Source Nasopharynx
[2023-09-02] MEDS: Normal Saline - Diluent 50 ML VIAL IJ (18:24)
[2023-09-02] MEDS: Omnipaque 350 MG/ML 100 ML BTL IJ (18:29)
--- NOTE | 2023-09-02 19:14 | DI.VRAD_ITS ---
PROCEDURE INFORMATION: Exam: CT Head Without Contrast Exam date and time: 09/02/2023 6:23 PM Age: 53 years old Clinical indication: Other: Facial palsy; Other: R ear pain; Additional info: R ear pain, facial palsy TECHNIQUE: Imaging protocol: Computed tomography of the head without contrast. COMPARISON: No relevant prior studies available. FINDINGS: Brain: Mild volume loss No hemorrhage. Unremarkable white matter. No mass effect. Cerebral ventricles: No ventriculomegaly. Paranasal sinuses: Visualized sinuses are unremarkable. No fluid levels. Mastoid air cells: Moderate right mastoid effusion. Bones/joints: Unremarkable. No acute fracture. Soft tissues: Unremarkable. IMPRESSION: No acute intracranial abnormality. Moderate right mastoid effusion Dictated and Authenticated by: Delroy Recinos MD. Ordering:PATRIZIA Ruby MD
--- NOTE | 2023-09-02 19:17 | DI.VRAD_ITS ---
PROCEDURE INFORMATION: Exam: CT Temporal Bones With Contrast. Exam date and time: 09/02/2023 6:28 PM Age: 53 years old Clinical indication: Other: R ear pain, drainage, mastoid ttp TECHNIQUE: Imaging protocol: Computed tomography of the temporal bones with contrast. Contrast material: OMNI 350; Contrast volume: 100 ml; Contrast route: INTRAVENOUS (IV); COMPARISON: CT HEAD WO 09/02/2023 6:23 PM FINDINGS: Right inner ear: Normal. Right ossicles and middle ear: Normal. The middle ear ossicles are intact. Right external auditory canal: Normal. Right facial nerve canal: Normal. Right jugular foramen: No jugular dehiscence. Right carotid canal: No aberrant carotid canal. Right mastoid air cells: Moderate to large right mastoid effusion. Left inner ear: Normal. Left ossicles and middle ear: Normal. The middle ear ossicles are intact. Left external auditory canal: Normal. Left facial nerve canal: Normal. Left jugular foramen: No jugular dehiscence. Left carotid canal: No aberrant carotid canal. Left mastoid air cells: Normal. No mastoid effusions. Soft tissues: Unremarkable. IMPRESSION: Moderate right mastoid effusion/fluid without CT evidence for coalescence or subperiosteal abscess Dictated and Authenticated by: Delroy Recinos MD. Ordering:PATRIZIA Ruby MD
[2023-09-02] MEDS: CEFEPIME 2 GM in Normal Saline 100 ML IVPB (22:07)
[2023-09-02] MEDS: Dexamethasone 10 MG/ML VIAL IVP (22:07)
[2023-09-02] MEDS: metroNIDAZOLE 500 MG/100 ML BAG 100 MG IVPB (23:37)
[2023-09-03] MEDS: Insulin Aspart 300 UNITS/3 ML PEN 55 UNITS SC ×2 (00:14→08:19)
[2023-09-03] MEDS: Glimepiride 2 MG TAB 4 MG PO ×2 (00:15→08:21)
[2023-09-03] MEDS: VANCOMYCIN 2,000 MG in Normal Saline 500 ML 250 MG IVPB (01:16)
[2023-09-03] MEDS: Insulin Glargine 300 UNITS/3 ML PEN 90 UNITS SC ×2 (01:17→11:01)
--- NOTE | 2023-09-03 07:00 | DI.MRI_ITS ---
Exam(s) MR BRAIN WO EXAM: MR BRAIN WO CLINICAL HISTORY: eval mastoiditis TECHNIQUE: Multiplanar multisequence MRI of the brain was performed. The head coil could not be use d due to the patient's body habitus. COMPARISON: CT CT TEMPORAL BONE W from 09/02/[address] HEAD WO from 09/02/2023 FINDINGS: The examination is limited due to patient motion artifact. VENTRICLES AND EXTRA AXIAL SPACES: Normal in size and morphology for the patient's age. MIDLINE SHIFT: None. CEREBRAL PARENCHYMA: No focus of restricted diffusion to suggest acute infarct. No space-occupying le mark identified. HEMORRHAGE: None. BRAINSTEM/CEREBELLUM: Normal. CALVARIUM: Normal. VISUALIZED PARANASAL SINUSES/MASTOIDS:There is fluid seen in the right mastoid air cells and the righ t middle ear consistent with right mastoiditis and otitis media on the right. CHEHALIS OF VEGA: Normal flow void. PITUITARY GLAND: Unremarkable. OTHER FINDINGS: None. IMPRESSION: Right mastoiditis and right otitis media. DATA REPOSITORY:
--- NOTE | 2023-09-03 07:03 | ED.PROG_ITS ---
Date of service: 09/03/23 Time of Service: 07:03 Medical Decision Making Patient care accepted in sign out. Concern for possible mastoiditis with facial nerve involvement. No ENT available at this facility, unable to transfer overnight. Has received IV antbiotics. Currently awaiting consult with NeuroOTOLOGY specialist at [facility]. 0900 Patient was evaluated by Dr. Billy, ENT, in the emergency department. He does not feel that the patient has mastoiditis or an indication for hospitalization. The patient is getting an MRI to further evaluate. He feels his symptoms of the facial nerve are likely secondary to a chronically, congenital dehiscent facial nerve that is now having some inflammation secondary to the ear infection. I also discussed with ENT at [facility], since we were able to have the patient be evaluated by ENT in this department, they do not have any further recommendations at this time. 1040 MRI reviewed. Read consistent with right mastoiditis and right otitis media. I discussed the MRI results with Dr. Billy. He feels that the call of mastoiditis is just indicative of inflammation and infection in the area, but not of true clinical mastoiditis requiring surgery or further IV antibiotics. His recommendation is outpatient high-dose Augmentin. I have sent this to the pharmacy. I have updated the patient on the treatment plan and results. Given his facial nerve palsy, recommend MRI patching at night and use of artificial tears. Understands to return to the emergency department if his facial nerve symptoms are not improving. Medical Records Medical records reviewed: Yes I reviewed the patient's medical records. Lab Data Lab results reviewed: Yes I reviewed the patient's lab results. Quality:[facility] Health Related Social Needs: No Data to Display Sign Out Sign Out Data: Sign Out Comment: IV ABX, Decadron, Complex Otic Pathology- Clinical mastoiditis without signs of coalescense or periosteal involvement on CT. ?Cholesteatoma 3 o'clock R otic canal Worsening facial palsy [facility] Otology Consult qAYg w/ Dr. Chavez, potential for outpatient clinic urgent f/u vs transfer vs d/c on PO ABX Last updated by Tung Emery PA at 09/02/23 23:24 Sign Out Comment: Please refer to progress note. Follow-up on MRI and otology consult. Notable improvement of clinical symptoms throughout the night, significant improvement in pain, discomfort, hearing, and facial palsy. Suspect potential home disposition based on current clinical assessment. Last updated by Tung Chavez DO at 09/03/23 07:41 Discharge Plan Disposition Patient Disposition: Home Condition: Stable Discharge Details Clinical Impression: Mastoid disorder, Facial palsy, Chronic suppurative otitis media Primary Care Provider: Krishna Barrios ED Provider: Tung Chavez Home Meds and New Rx's Prescriptions: New amoxicillin-pot clavulanate [Augmentin XR] 1,000-62.5 mg tablet extended release 12 hr 2 tab PO BID 7 Days Qty: 28 0RF No Action naproxen 500 mg tablet 500 mg PO BID PRN glimepiride 4 mg tablet 4 mg PO BID rosuvastatin 5 mg tablet 5 mg PO DAILY metformin 500 MG tablet 1,000 mg PO BID aspirin [Aspir-81] 81 MG tablet,delayed release (DR/EC) 81 mg PO .every other day lisinopril 10 MG tablet 40 mg PO DAILY cholecalciferol (vitamin D3) 1,000 UNITS tablet 1,000 units PO DAILY insulin glargine [Lantus Solostar U-100 Insulin] 100 UNIT/ML insulin pen 90 units Sub-Q BID Victoza 2-Jack 0.6 MG/0.1 ML pen injector 1.8 mg SQ DAILY insulin lispro [Humalog KwikPen Insulin] 100 unit/mL insulin pen 55 unit SUBCUT TID Patient Comments: INJECT 55 UNITS SUBCUTANEOUSLY THREE TIMES A AY WITH MEALS Discharge Instructions Additional Instructions: Please start the antibiotics as prescribed. You have received a significant amount of antibiotics. This does cause some GI upset. You can start some probiotics or yogurt for this. If your facial muscle symptoms are getting worse , you should come back to the emergency department for reevaluation. Otherwise you will be followed up in ENT clinic for reevaluation to ensure your infection is resolving. Referrals: Evans Billy MD [ [facility] STAFF PHYSICIAN] - (ER f/u )
--- NOTE | 2023-09-03 07:29 | W.EDPROG ---
Date of service: 09/03/23 Time of Service: 07:30 Medical Decision Making Patient was signed out to me by Kb Emery. Please refer to his HPI, physical exam, assessment and plan. At time of signout we were awaiting repeat consultation with otology at [facility]. Reassessment was performed this morning, patient has received all his antibiotics. He states that he is feeling much better. Patient demonstrates only a minimal right-sided facial palsy. It seems to be notably improved compared to last night. Evaluation of the right-sided ear canal demonstrates no mass or external fluid collection. No discharge. The tympanic membrane itself shows a mild effusion. Minimal tenderness for the right mastoid. The remainder of exam is notably unremarkable. No evidence of shingles in the canal or on the face. Repeat exam demonstrates good hearing from the right ear. Symptoms appear inconsistent with Liz Stewart syndrome/otic shingles. [facility] is not available for consult at this time in the morning, patient will be signed out. That being said we will also order an MRI to further evaluate the ear and mastoid areas. With the patient's notable clinical improvement, with no evidence of cholesteatoma on exam, and with notably stable vital signs the patient may be a candidate for outpatient management pending MRI after he has received his initial doses of antibiotics. Case will be signed out to my colleague Dr. Daina Garrett for follow-up on MRI imaging and consultation. Quality:[facility] Health Related Social Needs: No Data to Display Sign Out Sign Out Data: Sign Out Comment: IV ABX, Decadron, Complex Otic Pathology- Clinical mastoiditis without signs of coalescense or periosteal involvement on CT. ?Cholesteatoma 3 o'clock R otic canal Worsening facial palsy [facility] Otology Consult qAM w/ Dr. Chavez, potential for outpatient clinic urgent f/u vs transfer vs d/c on PO ABX Last updated by Tung Emery PA at 09/02/23 23:24 Discharge Plan Discharge Details Chief Complaint: GenMedical Clinical Impression: Mastoid disorder, Facial palsy, Chronic suppurative otitis media Primary Care Provider: Krishna Barrios ED Provider: Tung Chavez Home Meds and New Rx's Prescriptions: No Action naproxen 500 mg tablet 500 mg PO BID PRN glimepiride 4 mg tablet 4 mg PO BID rosuvastatin 5 mg tablet 5 mg PO DAILY metformin 500 MG tablet 1,000 mg PO BID aspirin [Aspir-81] 81 MG tablet,delayed release (DR/EC) 81 mg PO .every other day lisinopril 10 MG tablet 40 mg PO DAILY cholecalciferol (vitamin D3) 1,000 UNITS tablet 1,000 units PO DAILY insulin glargine [Lantus Solostar U-100 Insulin] 100 UNIT/ML insulin pen 90 units Sub-Q BID Victoza 2-Jack 0.6 MG/0.1 ML pen injector 1.8 mg SQ DAILY insulin lispro [Humalog KwikPen Insulin] 100 unit/mL insulin pen 55 unit SUBCUT TID Patient Comments: INJECT 55 UNITS SUBCUTANEOUSLY THREE TIMES A AY WITH MEALS
[2023-09-03] MEDS: Insulin Glargine 100 UNITS/ML UNIT (08:14)
[2023-09-03] MEDS: Lisinopril 10 MG TAB 40 MG PO (08:18)
[2023-09-03] MEDS: metroNIDAZOLE 500 MG/100 ML BAG 100 MG IVPB (08:23)
[2023-09-03 08:30] VITALS: BP 165/99; PULSE 92; RESP 16; TEMP 36.9; O2SAT 95
--- NOTE | 2023-09-03 10:54 | NUR.NOTE ---
Referral faxed to ENT for follow up in 1 week for Otitis with Facial Nerve Palsy
[2023-09-04 09:08] LABS: Lyme Ab w Rflx to Lyme Confirm Negative (Negative)
[2023-09-06 14:41] LABS: Anaplasma phagocytophilum Negative (Negative); B. miyamotoi PCR Negative (Negative); Babesia divergens/MO-1 Negative (Negative); Babesia duncani Negative (Negative); Babesia microti Negative (Negative); Ehrlichia chaffeensis Negative (Negative); Ehrlichia ewingii/canis Negative (Negative); Ehrlichia muris eauclairensis Negative (Negative)
== END 2023-09-03 11:04 | disposition home or self-care (01) ==
PROVIDERS: Physician Assistant; Emergency Provider Emergency Medicine; PCP Physician Assistant Medical
DX: G51.0 Bell's palsy; H74.8X1 Other specified disorders of right middle ear and mastoid; H66.3X1 Other chronic suppurative otitis media, right ear; H71.91 Unspecified cholesteatoma, right ear; E11.9 Type 2 diabetes mellitus without complications; I10 Essential (primary) hypertension; E66.9 Obesity, unspecified; Z79.4 Long term (current) use of insulin
CPT/HCPCS: 00123; 36415; 80053; 82962; 85652; 87040; 87637; 87798; 96365; 96366; 96367; 96375; 99285; 70450; 70481; 70551; 71046; 85025; 86140; 86618; J0692; J1100; J1815; J1836; J3370; J3490

== ENCOUNTER 2023-10-07 20:48 | Outpatient (REF) | payer MEDICAID, SELFPAY ==
[2023-10-07 20:56] LABS: Calculated LDL 60 mg/dL (<100); Cholesterol 141 mg/dL (<200); HDL Cholesterol 37 mg/dL (40-60); Triglyceride 223 mg/dL (<150)
[2023-10-07 21:12] LABS: Hemoglobin A1C 9.5 % (<5.7)
== END 2023-10-07 20:49 | disposition home or self-care (01) ==
LOC: NCHCN 20:48
PROVIDERS: PCP Physician Assistant Medical; Visit Provider Physician Assistant Medical
DX: E78.5 Hyperlipidemia, unspecified (principal); E11.9 Type 2 diabetes mellitus without complications
CPT/HCPCS: 80061; 83036

== ENCOUNTER 2024-11-21 19:38 | Emergency (ER) | payer MEDICAID, SELFPAY ==
[2024-11-21 19:43] VITALS: BP 143/91; PULSE 107; RESP 20; TEMP 36.7; O2SAT 95
--- NOTE | 2024-11-21 20:00 | RT.EKG_ITS ---
APPROVED REPORT Exam: Resting ECG Reason for Exam: chest pressure Patient Location: E HR:95 bpm ECG Measurements Heart Rate 95 AXIS PA 168 P 59 QRSd 98 QRS -54 QT 340 T 57 QTc 428 Conclusion Sinus rhythm, rate 95 No interval abnormalities No STEMI No priors available for priors
--- NOTE | 2024-11-21 20:00 | DI.CT_ITS ---
Exam(s) CT ABDOMEN PELVIS CTA EXAM: CT ABDOMEN PELVIS CTA CLINICAL HISTORY: coffee ground emesis, eval GI bleed. TECHNIQUE: Imaging Protocol: Axial CT angiography was performed with multi- slice acquisition and multi-planar and/or 3D reconstructions. CONTRAST MATERIAL: Intravenous: Omnipaque 350 Contrast volume:100 ml Oral: / no COMPARISON: No exams were available for comparison FINDINGS: Aorta: No visible atherosclerotic changes. No aneurysm. No dissection. No significant stenosis. Iliac Arteries: No evidence of stenosis. Common Femoral Arteries: No evidence of stenosis. Celiac [place]:No evidence of stenosis. SMA: No evidence of stenosis. Renal Arteries: No evidence of stenosis. There is a single renal artery perfusing each kidney. SHEKHAR: Patent. Venous structures: Patent. Lung bases:No acute findings. Liver: Enlarged at 25 cm in length. Normal density. No measurable mass. Gallbladder and biliary tract: No evidence of calculi. No gallbladder wall thickening. No biliary dilation. Pancreas: Normal density, no abnormal calcifications or inflammatory process. Spleen: Purely fatty density lesion in the left adrenal gland consistent with benign myelolipoma. Kidneys: Normal size, contour and axis. No obstructive uropathy. No masses seen. No evidence of calculi. Adrenal glands: No masses seen. Bladder: No gross wall thickening. No evidence of calculi. No evidence of mass. Bowel: No obstruction or bowel wall thickening. Diverticulosis. No evidence of diverticulitis. No evidence of active GI bleed. The appendix appears normal. Peritoneal cavity: No ascites. No focal collection. No mesenteric inflammatory response. Lymph nodes: Within normal limits. Reproductive: Unremarkable. Soft Tissues:Increased densities the anterior pannus. Bones: No acute findings. IMPRESSION: No visible active GI bleed. Diverticulosis without evidence of diverticulitis. No evidence of aneurysm or dissection. No evidence vascular occlusion or significant stenosis. The preliminary [facility] report was reviewed. RADIATION DOSE DELIVERED: 3,286.35mGy.cm Total DLP DATA REPOSITORY: All CT scans at this facility are submitted to the National Radiology Data Registry (NRDR) Dose Index Registry (DIR) with the [employer] (ACR). RADIATION OPTIMIZATION: All CT scans at this facility use at least one of these dose optimization techniques: automated exposure control; mA and/or kV adjustment per patient size (includes targeted exams where dose is matched to clinical indication); or iterative reconstruction.
--- NOTE | 2024-11-21 20:05 | W.ED.GENAD ---
Discharge Plan Disposition Patient Disposition: Home Condition: Stable Discharge Details Clinical Impression: Coffee ground emesis Primary Care Provider: Krishna Barrios ED Provider: Blanca Bañuelos Home Meds and New Rx's Prescriptions: New omeprazole 40 mg capsule,delayed release(DR/EC) 40 mg PO DAILY Qty: 30 0RF No Action Ozempic 0.25 mg or 0.5 mg (2 mg/3 mL) pen injector 0.5 mg subcut QWEEK naproxen 500 mg tablet 500 mg PO BID PRN glimepiride 4 mg tablet 4 mg PO BID rosuvastatin 5 mg tablet 5 mg PO DAILY Centrum Adult 50 Plus 80 mcg tablet,chewable 1 tab PO DAILY metformin 500 MG tablet 1,000 mg PO BID aspirin [Aspir-81] 81 MG tablet,delayed release (DR/EC) 81 mg PO .every other day lisinopril 10 MG tablet 40 mg PO DAILY cholecalciferol (vitamin D3) 1,000 UNITS tablet 1,000 units PO DAILY insulin glargine [Lantus Solostar U-100 Insulin] 100 UNIT/ML insulin pen 90 units Sub-Q BID insulin lispro [Humalog KwikPen Insulin] 100 unit/mL insulin pen 55 unit SUBCUT TID Patient Comments: INJECT 55 UNITS SUBCUTANEOUSLY THREE TIMES A AY WITH MEALS Discharge Instructions Instructions: GI bleed Additional Instructions: You were seen in the emergency department today for evaluation of coffee-ground emesis and abdominal bloating. In our department you do full physical examination performed, had reassuring laboratory studies and a CT scan that did not show a large volume of active bleeding. You need to start a medication called Prilosec to protect your belly in the setting of ulcers, and this will allow them to heal and improve. However, if you have worsening abdominal pain, experience any more episodes of coffee-ground or bloody emesis, or if any other symptoms that cause you concern you need to return immediately for reevaluation. Your cardiac enzymes were normal today, and your EKG was reassuring against heart attack. I have sent a referral for general surgery for an endoscopy, procedure where they use a camera to look at your esophagus and your stomach and evaluate for ulcers and sources of bleeding. Please follow-up with your primary care provider in the next few days to discuss this visit and any symptoms that change, worsen, or persist. Thank you for allowing us to be part of your care. HPI General Mode of arrival: ambulatory. Date/Time Provider Initiated Documentation: 11/21/24 19:46. Limitations to Documentation: no limitations. Information obtained by: patient, family and old records reviewed. HPI Narrative: This is a 54-year-old male patient with a history of diabetes and hyperlipidemia, fatty liver disease, who is presenting for evaluation of coffee-ground emesis. The patient reports that he was in his normal state of health today, though he does note that he has had significant increase in his physical exertion today. He began to feel unwell around dinnertime, had not yet eaten, but felt abdominal bloating, chest pressure, and had an episode of coffee-ground emesis. He still feels bloated but has not had any subsequent nausea or vomiting. He has no history of heartburn or known GERD, has never undergone colonoscopy or endoscopy, did not trial any medications prior to arrival at our facility. He does not take any blood thinning medications, has not noted melena or hematochezia Related Data Home Medications ?Medication ?Instructions ?Recorded ?Confirmed aspirin 81 mg tablet,delayed 81 mg PO .every other day 12/17/16 11/21/24 release (Aspir-) cholecalciferol (vitamin D3) 25 1,000 units PO DAILY 12/17/16 11/21/24 mcg (1,000 unit) tablet insulin glargine 100 unit/mL (3 90 units subcut BID 12/17/16 11/21/24 mL) subcutaneous pen (Lantus Solostar U-100 Insulin) lisinopril 10 mg tablet 40 mg PO DAILY 12/17/16 11/21/24 metformin 500 mg tablet 1,000 mg PO BID 12/17/16 11/21/24 insulin lispro 100 unit/mL 55 unit subcut TID 05/13/22 11/21/24 subcutaneous pen (Humalog KwikPen (U-100) Insulin) glimepiride 4 mg tablet 4 mg PO BID 08/19/22 11/21/24 naproxen 500 mg tablet 500 mg PO BID PRN 08/19/22 11/21/24 rosuvastatin 5 mg tablet 5 mg PO DAILY 08/19/22 11/21/24 semaglutide 0.25 mg or 0.5 mg (2 0.5 mg subcut QWEEK 01/20/24 11/21/24 mg/3 mL) subcutaneous pen injector (Ozempic) multivitamin with minerals-folic 1 tab PO DAILY 11/21/24 11/21/24 acid 80 mcg chewable tablet (Centrum Adult 50 Plus) omeprazole 40 mg capsule,delayed 40 mg PO DAILY #30 caps 11/21/24 release Previous Rx's ?Medication ?Instructions ?Recorded omeprazole 40 mg capsule,delayed 40 mg PO DAILY #30 caps 11/21/24 release Allergies Allergy/AdvReac Type Severity Reaction Status Date / Time seasonal Allergy . Uncoded 11/21/24 19:51 General Stated Complaint: GI Bleed JUHI: 3 Exam Narrative Exam Narrative: Gen: Awake and alert, in no apparent distress HEENT: Non-icteric sclera Neck: Supple Lungs: No apparent respiratory distress, normal respiratory effort. CV: Appears well perfused, heart with slightly tachycardic rate and rhythm, strong distal pulses Abdomen: Non-distended, soft, tender to palpation in the upper regions without rigidity, rebound, or guarding. The patient declines rectal examination MSK: Moves 4 extremities without apparent limitation in ROM Skin: Visualized skin without rashes, cyanosis. Neuro: Normal Gait, no obvious focal deficits or facial asymmetry. Speaks in full, clear sentences. Psych: Appropriate for situation. Course Vital Signs Vital signs: Vital Signs Temperature 36.7 C 11/21/24 19:43 Pulse 107 H 11/21/24 19:43 Respiratory Rate 20 11/21/24 19:43 Blood Pressure 143/91 H 11/21/24 19:43 Pulse Oximetry 95 11/21/24 19:43 Temperature 36.7 C 11/21/24 19:43 Temperature Source Oral 11/21/24 19:43 Pulse 107 H 11/21/24 19:43 Respiratory Rate 20 11/21/24 19:43 Blood Pressure 143/91 H 11/21/24 19:43 Blood Pressure Position Sitting 11/21/24 19:43 Pulse Oximetry 95 11/21/24 19:43 Oxygen Delivery Method Room Air 11/21/24 19:43 Oxygen Flow Rate 0 11/21/24 19:43 Pain Level 0 11/21/24 19:43 Medical Decision Making This is a 54-year-old male patient presenting for evaluation of coffee-ground emesis, abdominal bloating and chest pressure. My differential includes but is not limited to upper GI bleed, GERD, esophagitis, the patient only had 1 episode of vomiting and is not experiencing tearing chest pain more concerning for Boerhaave's or Kenna-Frye tears. Certainly considered ACS, arrhythmia, anemia, metabolic and electrolyte derangements, kidney and liver injury. No symptoms concerning for lower GI bleed, bowel obstruction, and the history and exam is less consistent with diverticulitis, appendicitis, mesenteric ischemia, etc. I obtained an EKG which shows a sinus rhythm with no evidence of acute ischemia. We will provide the patient with a dose of Protonix and IV fluids for his mild tachycardia, and we will obtain laboratory studies to include CBC, CMP, magnesium, troponin, type and screen, INR, and will obtain a CTA of the abdomen and pelvis to better characterize any abnormalities which might explain the patient's symptoms. -I independently interpreted the laboratory studies, which show no significant leukocytosis, anemia, or thrombocytopenia. The chemistry panel is without evidence of electrolyte abnormality, kidney dysfunction, or liver injury. INR normal at 1.1. Magnesium very slightly low at 1.7 and the patient can replete this with diet and supplements. Does have evidence of a transaminitis with an AST of 47 and an ALT of 92, which may be due to his fatty liver disease. Troponin negative and without interval increase on 1 hour recheck, lipase is low. CTA does not demonstrate any evidence of active GI bleed or other acute abnormality to explain the patient's symptoms. On reassessment the patient reports ongoing bloating but his chest pressure has resolved entirely. He has not had any subsequent episodes of vomiting. I had a shared decision-making conversation with the patient and given his lack of anemia, BUN elevation, and ongoing vomiting I do not feel that it is reasonable to trial a course of outpatient management which is the patient's preference. A referral was placed to general surgery for endoscopy, and a prescription for Prilosec was provided to his pharmacy. At this time, the patient has had a full medical evaluation and is safe for discharge to home. They are hemodynamically stable, ambulatory, and tolerating PO. They are understanding of the follow-up plan and return precautions. They left our facility without incident. Blanca Bañuelos MD [facility] All Active Problems (Updated 11/21/24 @ 22:51 by Blanca Bañuelos MD) Coffee ground emesis (Acute) Facial pain (Acute) Facial paralysis on right side (Acute) Arthritis of knee, left (Acute) Medical History Obesity Hypercholesterolemia Hypertension Non-insulin dependent type 2 diabetes mellitus Social History Smoking/Tobacco Use Status: Never Smoking risk assessment performed?: Yes Alcohol Intake: current Alcohol Intake frequency: holidays/special occasions only Alcohol type: beer Drug use: Never Substance use type: does not use Do you feel safe at home: Yes Do you feel safe in your relationship?: Yes
[2024-11-21] MEDS: Normal Saline 100 ML 400 ML (20:34)
[2024-11-21] MEDS: Pantoprazole 40 MG VIAL 80 MG IVP (20:35)
[2024-11-21 20:38] LABS: Abs Immature Grans 0.07 10^3/uL (0.0-0.06); Absolute Basophil Count 0.08 10^3/uL (0.0-0.2); Absolute Eosinophil Count 0.07 10^3/uL (0.0-0.7); Absolute Lymphocyte Count 2.25 10^3/uL (1.2-3.4); Absolute Monocyte Count 0.94 10^3/uL (0.1-0.8); Basophils % 0.7 %; Eosinophils % 0.6 %; HGB 14.7 g/dL (13.5-17.5); Immature Grans % 0.6 %; Lymphocytes % 20.5 %; MCH 26.4 pg (27.0-33.0); MCV 83 fL (80-95); MPV 10.6 fL (8.0-11.0); Monocytes % 8.6 %; Platelet Count 205 10^3/uL (130-400); RBC 5.56 10^6/uL (4.36-5.78); RDW 14.4 % (11.8-14.1); RDW-SD 42.7 fL; WBC 10.98 10^3/uL (4.4-10.8)
[2024-11-21 20:41] LABS: Absolute Neutrophil Count 7.58 10^3/uL (1.2-6.7)
[2024-11-21] MEDS: Omnipaque 350 MG/ML 100 ML BTL IJ (20:45)
[2024-11-21 20:49] LABS: INR 1.1 (0.9-1.1); Prothrombin Time 10.8 sec (9.1-11.1)
[2024-11-21] MEDS: Normal Saline - Diluent 50 ML VIAL IJ (20:49)
[2024-11-21] MEDS: Normal Saline Flush 10 ML SYR IVP (20:54)
[2024-11-21 21:08] LABS: ALT 92 U/L (16-63); AST 47 U/L (15-37); Albumin 4.1 g/dL (3.4-5.0); Alkaline Phosphatase 79 U/L (46-116); Anion Gap 14.6 mmol/L (3-11); BUN 16 mg/dL (7-18); Bilirubin, Total 0.7 mg/dL (0.2-1.0); CO2 22.4 mmol/L (21.0-32.0); CREATININE 0.7 mg/dL (0.70-1.30); Calcium 9.3 mg/dL (8.5-10.1); Chloride 104 mmol/L (98-107); Estimated GFR 108.82 (mL/min/1.73m2); Glucose 167 mg/dL (74-106); Lipase 51 U/L (<78); Magnesium 1.7 mg/dL (1.8-2.4); Potassium 4.1 mmol/L (3.5-5.1); Sodium 141 mmol/L (136-145); Total Protein 7.4 g/dL (6.4-8.2); Troponin I 7 ng/L (<or=76)
--- NOTE | 2024-11-21 22:18 | DI.[facility]_ITS ---
PROCEDURE INFORMATION: Exam: CTA Abdomen and Pelvis Without And With Contrast Exam date and time: 11/21/2024 8:42 PM Age: 54 years old Clinical indication: Coffee ground emesis, eval for gi bleed TECHNIQUE: Imaging protocol: Computed tomographic angiography of the abdomen and pelvis without and with contrast. Exam focused on the arteries. 3D rendering (Not supervised by radiologist): MIP and/or 3D reconstructed images were created by the technologist. Radiation optimization: All CT scans at this facility use at least one of these dose optimization techniques: automated exposure control; mA and/or kV adjustment per patient size (includes targeted exams where dose is matched to clinical indication); or iterative reconstruction. Contrast material: OMNIPAQUE 350; Contrast volume: 100 ml; Contrast route: INTRAVENOUS (IV); COMPARISON: CR XR CHEST 2V PA LATERAL 09/02/2023 6:35 PM FINDINGS: Aorta: No aortic aneurysm. No aortic dissection. Celiac trunk and mesenteric arteries: No occlusion or significant stenosis. Renal arteries: No occlusion or significant stenosis. Right iliac arteries: No occlusion or significant stenosis. Left iliac arteries: No occlusion or significant stenosis. Liver: No mass. Gallbladder and biliary ducts: Unremarkable. No calcified stones. No ductal dilation. Pancreas: Unremarkable. No mass. No ductal dilation. Spleen: Unremarkable. No splenomegaly. Adrenal glands: 4.3 cm predominantly fatty mass in the left adrenal gland compatible with myelolipoma. Right adrenal gland appears normal. Kidneys and ureters: Unremarkable. No solid mass. No hydronephrosis. Stomach and bowel: Diffuse colonic diverticulosis. No bowel wall thickening or evidence of bowel obstruction. No evidence of active GI bleed. Appendix: No evidence of appendicitis. Intraperitoneal space: Unremarkable. No free air. No significant fluid collection. Lymph nodes: Unremarkable. No enlarged lymph nodes. Urinary bladder: Unremarkable. No mass. Reproductive: Unremarkable as visualized. Bones/joints: No acute fracture. Soft tissues: Unremarkable. IMPRESSION: No evidence of active GI bleed or other acute abnormality. Dictated and Authenticated by: Reji Leija MD. Orderin St. Tanmay Rios MD
[2024-11-21 22:39] LABS: Troponin I 8 ng/L (<or=76)
[2024-11-21 23:02] VITALS: BP 156/82; PULSE 86; RESP 16; TEMP 36.4; O2SAT 97
[2024-11-21 23:05] VITALS: BP 156/82; PULSE 86; RESP 16; O2SAT 97
== END 2024-11-21 23:06 | disposition home or self-care (01) ==
PROVIDERS: Emergency Provider Emergency Medicine; PCP Physician Assistant Medical
DX: K92.0 Hematemesis (principal); R07.89 Other chest pain; R14.0 Abdominal distension (gaseous)
CPT/HCPCS: 99284; 99285; 96374; 36415; 80053; 83690; 86850; 86900; 86901; 93005; 74174; 83735; 84484; 85025; 85610; 93010; J2470; J3490

== ENCOUNTER 2025-03-29 17:48 | Outpatient (REF) | payer MEDICAID, SELFPAY ==
[2025-03-29 21:27] LABS: HCT 45.6 % (40.0-50.0); HGB 14.9 g/dL (13.5-17.5); MCH 26.7 pg (27.0-33.0); MCHC 32.7 % (32.0-36.0); MCV 82 fL (80-95); MPV 11.3 fL (8.0-11.0); Platelet Count 192 10^3/uL (130-400); RBC 5.59 10^6/uL (4.36-5.78); RDW 14.4 % (11.8-14.1); RDW-SD 42.5 fL; WBC 8.40 10^3/uL (4.4-10.8)
[2025-03-29 21:45] LABS: ALT 109 U/L (16-63); AST 50 U/L (15-37); Albumin 4.0 g/dL (3.4-5.0); Alkaline Phosphatase 77 U/L (46-116); Anion Gap 10.5 mmol/L (3-11); BUN 16 mg/dL (7-18); Bilirubin, Total 0.5 mg/dL (0.2-1.0); CO2 22.5 mmol/L (21.0-32.0); Calcium 9.2 mg/dL (8.5-10.1); Chloride 103 mmol/L (98-107); Cholesterol 131 mg/dL (<200); Glucose 183 mg/dL (74-106); HDL Cholesterol 38 mg/dL (>or=40); Potassium 4.4 mmol/L (3.5-5.1); Sodium 136 mmol/L (136-145); Total Protein 7.5 g/dL (6.4-8.2)
[2025-03-29 21:54] LABS: Hemoglobin A1C 7.8 % (<5.7)
== END 2025-03-29 17:49 | disposition home or self-care (01) ==
LOC: NCHCN 17:48
PROVIDERS: PCP Physician Assistant Medical; Visit Provider Physician Assistant Medical
DX: E78.5 Hyperlipidemia, unspecified (principal); K92.0 Hematemesis; I10 Essential (primary) hypertension; E11.9 Type 2 diabetes mellitus without complications
CPT/HCPCS: 80053; 80061; 85027; 83036